=== PATIENT | male | born 1960 | race Caucasian/White ===

== ENCOUNTER 2021-12-20 11:25 | Outpatient (CLI) | payer OTHER ==
[2021-12-20 12:48] LABS: #Eosinphils 0.1 10x3/uL (0.0-0.5); #Monocytes 0.3 10x3/uL (0.0-1.1); #Neutrophils 2.2 10x3/uL (1.5-8.4); %Basophils 0.6 % (0.0-2.0); %Eosinophils 1.5 % (0.0-6.0); %Lymphocytes 26.2 % (18.0-47.0); %Monocytes 8.7 % (0.0-10.0); Hemoglobin 11.5 g/dL (13.5-17.5); Mean Corpuscular HGB CONC 33.1 g/dL (32.0-36.0); Mean Corpuscular Hemoglobin 29.7 pg (27.0-33.0); Mean Corpuscular Volume 89.7 fl (81.2-95.1); Mean Platelet Volume 9.8 fl (7.4-10.4); Platelet Count 84 10x3/uL (150-450); RBC Distribution Width 15.7 % (11.5-14.5); Red Blood Cell (RBC) Count 3.87 10x6/uL (4.32-5.72); White Blood Cell (WBC) Count 3.4 10x3/uL (3.5-10.5)
[2021-12-20 13:23] LABS: Anion Gap 14 mmol/L (10-20); BUN (Urea Nitrogen) 13 mg/dL (8.4-25.7); Calc. Creatinine Clearance 0 mL/min (70-130); Calcium 8.6 mg/dL (7.8-10.44); Carbon Dioxide 28 mmol/L (23-31); Chloride 104 mmol/L (98-107); Estimated GFR 66; Glucose 153 mg/dL (80-115); Potassium 3.5 mmol/L (3.5-5.1); Sodium 142 mmol/L (136-145)
== END 2021-12-20 11:26 | disposition home or self-care (01) ==
LOC: LABBT 11:25
PROVIDERS: ATTEND Specialist
DX: Z01.812 Encounter for preprocedural laboratory examination (principal); E27.1 Primary adrenocortical insufficiency
CPT/HCPCS: 80048; 82378; 83036; 85025

== ENCOUNTER 2021-12-20 11:30 | Inpatient (IN) | payer OTHER ==
[2021-12-24] MEDS ORDERED: Acetaminophen 500 MG TAB ONE ×2 (08:27)
[2021-12-24] MEDS ORDERED: Ketorolac Tromethamine 30 MG/ML VIAL ONE (08:27)
[2021-12-24] MEDS ORDERED: Dexamethasone 4 mg/ml Vial ONE (09:22)
[2021-12-24] MEDS ORDERED: Bupivacaine 0.25% HCL 30 ML VIAL ONE ×2 (09:22→10:07)
[2021-12-24] MEDS ORDERED: Midazolam HCl 2 mg/2 ml Vial ONE (09:22)
[2021-12-24] MEDS ORDERED: fentaNYL PF 100 MCG/2 ML SYRINGE ONE ×2 (09:22→09:42)
[2021-12-24] MEDS ORDERED: EPINEPHrine 1 MG/ML AMP ONE (09:39)
[2021-12-24] MEDS ORDERED: Lidocaine 1% (PF) 30 ML VIAL ONE (09:39)
[2021-12-24] MEDS ORDERED: Famotidine/PF 20 mg/2ml Vial ONE (09:42)
[2021-12-24] MEDS ORDERED: SUGAMMADEX SODIUM 200 MG/2 ML VIAL ONE (09:42)
[2021-12-24] MEDS ORDERED: methylPREDNISolone Sod Succ/PF 125 MG/2 ML VIAL ONE (09:42)
[2021-12-24] MEDS ORDERED: cefOXitin 2 GM VIAL ONE ×2 (10:02→12:03)
[2021-12-24] MEDS ORDERED: Sodium Chloride 0.9% 100 ML ONE (10:02)
[2021-12-24] MEDS ORDERED: Metoprolol Tartrate 5 MG/5 ML VIAL ONE (10:07)
[2021-12-24] MEDS ORDERED: Rocuronium Bromide 10 MG/ML (10ML VIAL) ONE (10:07)
[2021-12-24] MEDS ORDERED: Dexamethasone 20 MG/5 ML VIAL ONE (10:07)
[2021-12-24] MEDS ORDERED: Ondansetron PF 4 MG/2 ML Vial ONE (10:07)
[2021-12-24] MEDS ORDERED: PHENYLEPHRINE-NS 100 MCG/ML 10 ML SYRINGE ONE (10:07)
[2021-12-24] MEDS ORDERED: Metoclopramide HCl 10 MG/2 ML VIAL ONE (10:07)
[2021-12-24] MEDS ORDERED: PROPOFOL 200 MG/20 ML VIAL ONE (10:07)
[2021-12-24 10:49] LABS: SARS-CoV-2 NAA Rapid Test Not Detected (NotDetected)
[2021-12-24] MEDS ORDERED: Methylene Blue 50 MG/10 ML AMPUL ONE (12:28)
[2021-12-24] MEDS ORDERED: hydrALAZINE 20 MG/ML VIAL SLOW IVP PRN (13:06)
[2021-12-24] MEDS ORDERED: Ondansetron PF 4 MG/2 ML Vial IVP PRN (13:06)
[2021-12-24] MEDS ORDERED: Morphine 2 MG/ML VIAL SLOW IVP PRN (13:06)
[2021-12-24] MEDS ORDERED: Morphine 4 MG/ML VIAL SLOW IVP PRN (13:06)
[2021-12-24] MEDS ORDERED: Promethazine HCl 25 MG/ML VIAL IM PRN ×2 (13:06→13:26)
[2021-12-24] MEDS ORDERED: Promethazine HCl 25 MG/ML VIAL IVPB PRN (13:26)
[2021-12-24] MEDS ORDERED: Meperidine HCl/PF 25 MG/ML VIAL SLOW IVP PRN (13:26)
[2021-12-24] MEDS ORDERED: Ondansetron HCl/PF 4 MG/2 ML Vial IVP PRN (13:26)
[2021-12-24] MEDS ORDERED: FENTANYL 50 MCG/ML 1 ML VIAL ONE (13:27)
[2021-12-24] MEDS: D5 1/2 NS w/20 mEq KCL 1,000 ML IV SCH ×2 (19:58→21:09)
[2021-12-24] MEDS: Ketorolac Tromethamine 30 MG/ML VIAL IVP SCH ×2 (19:59→21:08)
[2021-12-24] MEDS: Fludrocortisone Acetate 0.1 MG TAB PO SCH (19:59)
[2021-12-24] MEDS: Hydrocortisone 10 mg Tablet PO SCH ×2 (19:59→21:22)
[2021-12-24 20:05] VITALS: BMI 28.1
[2021-12-24] MEDS ORDERED: Enoxaparin Sodium 40 MG/0.4 ML SYRINGE SC SCH (21:00)
[2021-12-24] MEDS: cefOXitin 2 GM in Sodium Chloride 0.9% 100 ML IVPB SCH (21:07)
[2021-12-24] MEDS: Famotidine 20 MG TAB PO SCH (21:08)
[2021-12-24] MEDS: Famotidine/PF 20 mg/2ml Vial SLOW IVP SCH (21:08)
[2021-12-24] MEDS: Potassium Chloride 10 MEQ TAB PO SCH (21:08)
[2021-12-24] MEDS ORDERED: Hydrocortisone Sod Succ/PF 100 mg/2 ml Vial IVP SCH (21:15)
[2021-12-24] MEDS: Hydrocortisone Sod Succ/PF 250 mg/2 ml Vial SLOW IVP SCH ×2 (21:18→21:22)
[2021-12-25] MEDS: Ketorolac Tromethamine 30 MG/ML VIAL IVP SCH ×4 (02:00→20:05)
[2021-12-25] MEDS: cefOXitin 2 GM in Sodium Chloride 0.9% 100 ML IVPB SCH ×3 (04:12→20:04)
[2021-12-25] MEDS: Levothyroxine Sodium 50 MCG TAB PO SCH (06:07)
[2021-12-25] MEDS: D5 1/2 NS w/20 mEq KCL 1,000 ML IV SCH ×3 (06:07→19:25)
[2021-12-25 06:40] LABS: #Lymphocytes 0.8 thou/uL (1.20-3.40); #Monocytes 0.5 thou/uL (0.11-0.59); #Neutrophils 3.2 thou/uL (1.40-6.50); %Eosinophils 0.1 % (0.0-10.0); %Lymphocytes 18.2 % (21.0-51.0); %Monocytes 10.1 % (0.0-10.0); %Neutrophils 71.5 % (42.0-75.0); Hemoglobin 8.4 g/dL (14.0-18.0); Mean Corpuscular HGB CONC 31.7 g/dL (32.0-36.0); Mean Corpuscular Hemoglobin 29.7 pg (27.0-31.0); Mean Corpuscular Volume 93.6 fl (78.0-98.0); Mean Platelet Volume 7.3 fL (7.4-10.4); Platelet Count 54 thou/uL (130-400); RBC Distribution Width 14.2 % (11.5-14.5); Red Blood Cell (RBC) Count 2.82 mill/uL (4.70-6.10); White Blood Cell (WBC) Count 4.5 thou/uL (4.8-10.8)
[2021-12-25 06:50] LABS: Anion Gap 9 mmol/L (10-20); BUN (Urea Nitrogen) 18 mg/dL (8.4-25.7); Calc. Creatinine Clearance 59 mL/min (70-130); Carbon Dioxide 26 mmol/L (23-31); Chloride 108 mmol/L (98-107); Estimated GFR 58; Glucose 137 mg/dL (80-115); Potassium 4.1 mmol/L (3.5-5.1); Sodium 139 mmol/L (136-145)
[2021-12-25] MEDS: Famotidine 20 MG TAB PO SCH ×2 (09:10→20:05)
[2021-12-25] MEDS: Potassium Chloride 10 MEQ TAB PO SCH ×2 (09:10→20:04)
[2021-12-25] MEDS: Hydrocortisone 10 mg Tablet PO SCH ×2 (09:10→20:05)
[2021-12-25] MEDS: Famotidine/PF 20 mg/2ml Vial SLOW IVP SCH (09:11)
[2021-12-25 13:41] LABS: #Monocytes 0.5 thou/uL (0.11-0.59); #Neutrophils 5.1 thou/uL (1.40-6.50); %Basophils 0.1 % (0.0-1.0); %Eosinophils 0.1 % (0.0-10.0); %Lymphocytes 14.4 % (21.0-51.0); %Monocytes 8.1 % (0.0-10.0); %Neutrophils 77.3 % (42.0-75.0); Hemoglobin 8.2 g/dL (14.0-18.0); Mean Corpuscular HGB CONC 31.4 g/dL (32.0-36.0); Mean Corpuscular Hemoglobin 29.7 pg (27.0-31.0); Mean Corpuscular Volume 94.6 fl (78.0-98.0); Mean Platelet Volume 7.3 fL (7.4-10.4); Platelet Count 61 thou/uL (130-400); RBC Distribution Width 14.2 % (11.5-14.5); Red Blood Cell (RBC) Count 2.76 mill/uL (4.70-6.10); White Blood Cell (WBC) Count 6.7 thou/uL (4.8-10.8)
[2021-12-25 13:57] LABS: Anion Gap 10 mmol/L (10-20); BUN (Urea Nitrogen) 22 mg/dL (8.4-25.7); Calc. Creatinine Clearance 69 mL/min (70-130); Calcium 8.1 mg/dL (7.8-10.44); Carbon Dioxide 24 mmol/L (23-31); Chloride 108 mmol/L (98-107); Estimated GFR 70; Glucose 131 mg/dL (80-115); Potassium 4.4 mmol/L (3.5-5.1); Sodium 138 mmol/L (136-145)
[2021-12-25] MEDS ORDERED: Hydrocortisone 10 mg Tablet PO SCH (15:00)
[2021-12-25] MEDS ORDERED: Hydrocortisone Sod Succ/PF 100 mg/2 ml Vial IVP SCH (18:30)
[2021-12-26] MEDS: cefOXitin 2 GM in Sodium Chloride 0.9% 100 ML IVPB SCH ×3 (02:54→20:10)
[2021-12-26] MEDS: Ketorolac Tromethamine 30 MG/ML VIAL IVP SCH ×2 (02:54→08:39)
[2021-12-26] MEDS: Levothyroxine Sodium 50 MCG TAB PO SCH (05:44)
[2021-12-26] MEDS: D5 1/2 NS w/20 mEq KCL 1,000 ML IV SCH ×2 (05:44→12:07)
[2021-12-26 06:19] LABS: Anion Gap 8 mmol/L (10-20); BUN (Urea Nitrogen) 19 mg/dL (8.4-25.7); Calc. Creatinine Clearance 67 mL/min (70-130); Carbon Dioxide 24 mmol/L (23-31); Chloride 110 mmol/L (98-107); Estimated GFR 68; Glucose 97 mg/dL (80-115); Potassium 3.9 mmol/L (3.5-5.1); Sodium 138 mmol/L (136-145)
[2021-12-26 06:30] LABS: #Lymphocytes 0.9 thou/uL (1.20-3.40); #Monocytes 0.4 thou/uL (0.11-0.59); #Neutrophils 2.3 thou/uL (1.40-6.50); %Eosinophils 0.1 % (0.0-10.0); %Lymphocytes 24.7 % (21.0-51.0); %Neutrophils 64.3 % (42.0-75.0); Hemoglobin 7.2 g/dL (14.0-18.0); Mean Corpuscular HGB CONC 31.9 g/dL (32.0-36.0); Mean Corpuscular Hemoglobin 29.9 pg (27.0-31.0); Mean Corpuscular Volume 93.6 fl (78.0-98.0); Mean Platelet Volume 7.5 fL (7.4-10.4); Platelet Count 54 thou/uL (130-400); RBC Distribution Width 14.2 % (11.5-14.5); Red Blood Cell (RBC) Count 2.41 mill/uL (4.70-6.10); White Blood Cell (WBC) Count 3.5 thou/uL (4.8-10.8)
[2021-12-26] MEDS: Potassium Chloride 10 MEQ TAB PO SCH ×2 (08:38→20:11)
[2021-12-26] MEDS: Hydrocortisone 10 mg Tablet PO SCH ×3 (08:38→20:11)
[2021-12-26] MEDS: Famotidine 20 MG TAB PO SCH ×2 (08:39→20:11)
[2021-12-26] MEDS ORDERED: HYDROcodone/Acetaminophen 7.5/325 mg Tablet PO PRN ×2 (08:56)
[2021-12-26] MEDS: Naproxen 500 MG TAB PO SCH ×2 (09:52→20:11)
[2021-12-26] MEDS: Fludrocortisone Acetate 0.1 MG TAB PO SCH (15:15)
[2021-12-27] MEDS: cefOXitin 2 GM in Sodium Chloride 0.9% 100 ML IVPB SCH (04:59)
[2021-12-27] MEDS: Levothyroxine Sodium 50 MCG TAB PO SCH (05:01)
[2021-12-27] MEDS: D5 1/2 NS w/20 mEq KCL 1,000 ML IV SCH (05:07)
[2021-12-27 06:02] LABS: #Lymphocytes 0.8 thou/uL (1.20-3.40); #Monocytes 0.3 thou/uL (0.11-0.59); #Neutrophils 1.8 thou/uL (1.40-6.50); %Basophils 0.4 % (0.0-1.0); %Eosinophils 0.8 % (0.0-10.0); %Lymphocytes 26.3 % (21.0-51.0); %Monocytes 9.3 % (0.0-10.0); %Neutrophils 63.2 % (42.0-75.0); Mean Corpuscular HGB CONC 32.8 g/dL (32.0-36.0); Mean Corpuscular Hemoglobin 30.9 pg (27.0-31.0); Mean Corpuscular Volume 94.1 fl (78.0-98.0); Platelet Count 64 thou/uL (130-400); RBC Distribution Width 14.3 % (11.5-14.5); Red Blood Cell (RBC) Count 2.59 mill/uL (4.70-6.10); White Blood Cell (WBC) Count 2.8 thou/uL (4.8-10.8)
[2021-12-27] MEDS ORDERED: Ciprofloxacin 500 MG TAB PO SCH ×2 (08:30→20:00)
[2021-12-27] MEDS: Potassium Chloride 10 MEQ TAB PO SCH (09:12)
[2021-12-27] MEDS: Famotidine 20 MG TAB PO SCH (09:12)
[2021-12-27] MEDS: Hydrocortisone 10 mg Tablet PO SCH ×2 (09:12→12:18)
[2021-12-27] MEDS: Naproxen 500 MG TAB PO SCH (09:13)
[2021-12-27 12:26] VITALS: BP 158/66; TEMP 98
== END 2021-12-27 13:15 | disposition home or self-care (01) | DRG 330 ==
LOC: SURG A 12-24 07:39
PROVIDERS: ADMIT Specialist; ATTEND Specialist
PROC: 0DTN4ZZ Resection of Sigmoid Colon, Percutaneous Endoscopic Approach (ICD-10-PCS; principal; 2021-12-24)
PROC: 0DTJ4ZZ Resection of Appendix, Percutaneous Endoscopic Approach (ICD-10-PCS; 2021-12-24)
DX: K57.32 Diverticulitis of large intestine without perforation or abscess without bleeding (principal); E27.1 Primary adrenocortical insufficiency; K56.609 Unspecified intestinal obstruction, unspecified as to partial versus complete obstruction; K61.0 Anal abscess; Z20.822 Contact with and (suspected) exposure to COVID-19
CPT/HCPCS: 36415; 36416; 80048; 85025; 88304; 88307; A4649; C1889; J0171; J0694; J1100; J1650; J1720; J1885; J2001; J2250; J2405; J2704; J2765; J2930; J3010; J3480; J3490; Q9968; S0020; S0028; U0002

== ENCOUNTER 2022-10-31 07:44 | Day surgery (SDC) | payer OTHER ==
[2022-10-31 08:33] LABS: #Eosinphils 0.1 thou/uL (0.0-0.7); #Monocytes 0.5 thou/uL (0.11-0.59); #Neutrophils 3.5 thou/uL (1.40-6.50); %Basophils 0.6 % (0.0-1.0); %Eosinophils 2.5 % (0.0-10.0); %Lymphocytes 21.1 % (21.0-51.0); %Monocytes 8.9 % (0.0-10.0); %Neutrophils 66.7 % (42.0-75.0); Hematocrit 39.2 % (42.0-52.0); Hemoglobin 12.7 g/dL (14.0-18.0); Mean Corpuscular HGB CONC 32.4 g/dL (32.0-36.0); Mean Corpuscular Hemoglobin 30.8 pg (27.0-31.0); Mean Corpuscular Volume 94.9 fl (78.0-98.0); Mean Platelet Volume 9.5 fL (7.4-10.4); RBC Distribution Width 14.2 % (11.5-14.5); Red Blood Cell (RBC) Count 4.13 mill/uL (4.70-6.10); White Blood Cell (WBC) Count 5.3 10x3/uL (4.8-10.8)
[2022-10-31 08:35] LABS: Platelet Count 93 10x3/uL (130-400)
[2022-10-31 08:45] LABS: PTT 27.4 sec (22.9-36.1); Prothrombin Time 13.1 sec (12.0-14.7)
[2022-10-31 09:07] VITALS: BP 151/66
[2022-10-31] MEDS ORDERED: methylPREDNISolone Sod Succ/PF 125 MG/2 ML VIAL ONE (09:10)
[2022-10-31] MEDS ORDERED: fentaNYL 50 mcg/mL 1 mL Vial ONE (09:10)
[2022-10-31] MEDS ORDERED: Lidocaine 1% PF 5 ML VIAL ONE (09:10)
[2022-10-31] MEDS ORDERED: Sodium Bicarbonate 2.5 MEQ/5 ML VIAL ONE (09:10)
[2022-10-31] MEDS ORDERED: Dexamethasone 4 mg/ml Vial ONE (09:10)
== END 2022-10-31 13:15 | disposition home or self-care (01) ==
LOC: ULT 07:44
PROVIDERS: ATTEND Internal Medicine Gastroenterology
DX: K75.3 Granulomatous hepatitis, not elsewhere classified (principal); D69.6 Thrombocytopenia, unspecified; K57.30 Diverticulosis of large intestine without perforation or abscess without bleeding; R19.4 Change in bowel habit; E07.9 Disorder of thyroid, unspecified; Z87.891 Personal history of nicotine dependence; Z79.890 Hormone replacement therapy; Z79.899 Other long term (current) drug therapy
CPT/HCPCS: 47000; 76942; 85025; 85610; 85730; 88307; 88313; J1100; J2930; J3010